=== PATIENT | male | born 1965 | race Caucasian/White ===

== ENCOUNTER → 2024-04-03 09:31 | Outpatient (REF) | payer BC, SELFPAY | LOC: RAD 09:31 | PROVIDERS: ATTENDING PHYSICIAN General Practice; FAMILY PHYSICIAN Family Medicine | DX: D17.23 Benign lipomatous neoplasm of skin and subcutaneous tissue of right leg (principal) | CPT/HCPCS: 76882 ==

== ENCOUNTER 2024-06-11 17:48 | Emergency (ER) | payer BC, SELFPAY ==
[2024-06-11 18:35] VITALS: BP 117/82
[2024-06-11 19:05] LABS: % Basophils 0.4 % (0-2); % Eosinophils 1.5 % (0-6); % Immature Granulocytes 0.1 % (0-0.5); % Lymphocytes 37.9 % (20.5-51.1); % Monocytes 7.5 % (1.7-9.3); % Neutrophils 52.6 % (42.2-75.2); Absolute Eosinophils 0.1 10^3/uL (0-0.7); Absolute Monocytes 0.6 10^3/uL (0.1-0.6); Absolute Neutrophils 4.2 10^3/uL (1.4-6.5); Hematocrit 45.8 % (39.0-52.0); Mean Corp Hgb Conc. 34.9 g/dL (33.0-37.0); Mean Corpuscular Hgb 31.1 pg (27.0-31.0); Mean Corpuscular Volume 88.9 fL (80.0-94.0); Mean Platelet Volume 9.1 fL (7.4-10.4); Nucleated Red Blood Cells % 0 % (-); Platelet Count 224 10^3/uL (130-400); Red Blood Cell Count 5.15 10^6/uL (4.70-6.10); Red Cell Dist. Width 13.5 % (11.5-14.5)
[2024-06-11 19:22] LABS: ALT (SGPT) 39 U/L (0-50); AST (SGOT) 38 U/L (17-59); Albumin 4.1 g/dl (3.5-5.0); Alkaline Phosphatase 59 U/L (38-126); Blood Urea Nitrogen 20 mg/dl (9-20); Calcium 10.5 mg/dl (8.4-10.2); Carbon Dioxide 27 mmol/L (22-30); Chloride 104 mmol/L (98-107); Glucose 108 mg/dl (70-99); Potassium 4.1 mmol/L (3.5-5.1); Sodium 136 mmol/L (135-145); Total Bilirubin 1.2 mg/dl (0.2-1.3); Total Protein 6.8 g/dl (6.3-8.2); eGFR > 60.00
--- NOTE | 2024-06-11 20:41 | ED.GENMED ---
History of Present Illness
General
Chief Complaint: Breathing Problem
Source: patient
Exam Limitations: none
Time Seen by Provider: 06/11/24 20:32
Nursing documentation reviewed up to this point in time: agreed with
History of Present Illness
History of Present Illness:
58-year-old male with a past medical history of hypertension, diabetes, hypothyroidism who presents to the emergency room for evaluation of shortness of breath. Patient reports onset of symptoms about 4-5 weeks ago and they have been constant since
that time. He says that they initially started after he had rotator cuff surgery on his left shoulder and he initially attributed to deconditioning in the postop period however his symptoms have been persisted and are limiting him during
exercise�today tried biking for the first time since surgery and could not tolerate due to shortness of breath and so he came to the emergency room to be assessed. He denies any chest pain. Denies any coughing. Denies any swelling or pain in the
legs. He denies any other complaints. Denies any known cardiac history. Denies history of DVT/PE.
Past History
Past History
ED Past Medical History: Hypercholesterolemia and NIDDM ('Borderline')
ED Past Surgical History: None
Social History
Tobacco: Non-smoker
Review of Systems
Review of Systems
All Other Systems: ROS reviewed and negative except as documented in HPI and ROS
Constitutional: Reports fatigue; Denies fever or chills
Respiratory: Reports trouble breathing; Denies cough
Cardiac: Denies chest pain or palpitations
ABD/GI: Denies abdominal pain
Musculoskeletal: Denies edema, neck pain or back pain
Neurological: Denies dizzy or headache
Phy Exam
Physical Exam
Physical Exam:
General: Awake, alert, oriented x3; no acute distress
Head: Normocephalic, atraumatic
Eyes: Conjunctiva normal
Throat: Airway intact, handling secretions
Neck: Trachea midline, supple without meningismus
Lungs: Clear to auscultation bilaterally, no wheezing, rales, rhonchi
Heart: Regular rate and rhythm, no murmurs, gallops, or rubs
Neuro: No gross deficits, ambulatory
Extremities: No edema in extremities, equal pulses in all extremities
Scores
Heart Failure Risk
Heart Failure Risk Score: Not Applicable
Heart Score for Chest Pain Patients
STEMI patient?: Not applicable
PE Wells Score
Symptoms of DVT: No
No alternative diagnosis better explains the illness: No
Tachycardia with pulse > 100: No
Immobilization (>=3 days) or surgery within previous 4 weeks: Yes
Prior history of DVT or pulmonary embolism: No
Presence of hemoptysis: No
Presence of malignancy: No
Pulmonary Embolism Risk Score: 1.5
Probability of PE: Pt is low risk
Withdrawal Assessment of Alcohol
Withdrawal Assessment Completed?: Not applicable
Course
Orders/Labs/Results
Orders:
Orders
06/11/24 18:44
EKG [Electrocardiogram (*1)] Urgent
Reason for Study: Shortness of Breath
EKG- Treatment ONCE
06/11/24 18:58
CMP [Comprehensive Metabolic Panel] Urgent
Complete Blood Count/With Diff Urgent
06/11/24 20:33
CT Chest Pe Study Urgent
Comment:
Reason For Exam: CP, SOB s/p surgery
Abnormal Lab Results
06/11/24
18:58
MCH 31.1 H pg
(27.0-31.0)
Glucose 108 H mg/dl
(70-99)
Calcium 10.5 H mg/dl
(8.4-10.2)
06/11/24 18:58
06/11/24 18:58
Vital Signs
Initial and Last Documented VS:
Initial Vital Signs
Temp Pulse Resp BP Pulse Ox
36.9 C 89 18 117/82 96
06/11/24 18:35 06/11/24 18:35 06/11/24 18:35 06/11/24 18:35 06/11/24 18:35
Last Documented Vital Signs
Temp Pulse Resp BP Pulse Ox
36.9 C 60 19 116/83 94
06/11/24 18:35 06/11/24 22:00 06/11/24 22:00 06/11/24 22:00 06/11/24 22:00
MDM/Problems Addressed
Differential Diagnosis Includes:
PE, deconditioning, anemia, pneumonia, CHF, dysrhythmia
MDM/Problems Addressed:
58-year-old male presents for evaluation of shortness of breath and fatigue for the past 4 to 5 weeks�symptoms started shortly after left shoulder surgery for rotator cuff tear. Vital signs normal. Physical exam as above. Patient had labs in
triage including a CBC and a CMP which were unremarkable. Will send for a CTA to rule out PE. Monitor on telemetry reassess after the above.
CTA negative for PE or any other acute pathology. Vitals have been stable throughout duration of his ED stay. Stable for discharge, follow-up with PCP for further evaluation of his symptoms; not unreasonable to have him see a business machine mechanic as
well�at this point he has no clear emergent pathology, nothing to suggest acute CHF, no structural abnormalities on CT. Spoke with patient he is comfortable with this plan. Spoke about return precautions all questions answered.
*Radiology
Radiology exam reviewed: radiology read reviewed
*Pulse Oximetry
Patient hypoxic: no
*EKG
Interpreted by ED Provider?: Yes
Heart Rate: 77
Rate: normal
Rhythm: sinus
[place]: normal axis
Interval: normal interval
QRS Pattern: normal QRS
Ischemia: no ischemia
*Critical Care Note
Total Time (30-74mins, 75-104mins- exclusive of procedures): Not Applicable
Data Reviewed
Source: patient
ED Attending Note
-
Portions of this chart may have been created with voice recognition software.� Occasional wrong word or��sound alike� substitutions may have occurred due to the inherent limitations of voice recognition software.
Discharge Plan
Departure
Patient Disposition: Home (Routine Discharge)
Date of Disposition: 06/11/24
Time of Disposition: 23:12
Patient with high blood pressure during this ER visit?: No
Discharge Problem:
Dyspnea
Instructions: Shortness of Breath (Dyspnea) (DC)
Referrals:
Bro Chen DO [Family Provider] - Follow up in 2-3 days
Ham Garland MD [Active] - Call in 1-3 days for appt
Activity Restrictions/Additional Instructions:
Thank you for visiting the Emergency Department at [facility].
1. Please schedule a follow up appointment as directed. Call first thing tomorrow morning to make an appointment.
2. If indicated, please take your medications as instructed and indicated on discharge paperwork.
3. If any of your symptoms do not improve, or persist, or become more severe within 6-12 hours, please return to the emergency department for further care.
4. Please return to the emergency department if you develop a headache, neck pain/stiffness, fever greater than 100.4F, chest pain, shortness of breath, persistent nausea, vomiting, slurred speech, difficulty walking, numbness/tingling, weakness,
signs of infection or any other symptoms that are worrisome to you.
Please call [phone] if you have any questions.
Interventions
Interventions:
*Risk Screen - Suicide Last Done: 06/11/24 18:35
*General Assessment Last Done: 06/11/24 20:51
*Neglect/Abuse Screening Last Done: 06/11/24 18:35
*ED COVID-19 Vaccine History Last Done: 06/11/24 18:35
ED- Cardiac Assessment Last Done: 06/11/24 20:51
ED- Pulmonary Assessment Last Done: 06/11/24 20:51
Discharge Date and Time
Print Language: [place]
[2024-06-11 20:44] VITALS: BP 125/88
[2024-06-11 20:51] VITALS: BMI 19.0
[2024-06-11 21:00] VITALS: BP 114/83
[2024-06-11 22:00] VITALS: BP 116/83
== END 2024-06-11 23:26 | disposition home or self-care (01) ==
LOC: EMR 17:48
PROVIDERS: Emergency Medicine; EMERGENCY PHYSICIAN Emergency Medicine; FAMILY PHYSICIAN Family Medicine
DX: R06.00 Dyspnea, unspecified (principal); I10 Essential (primary) hypertension; E11.9 Type 2 diabetes mellitus without complications; E03.9 Hypothyroidism, unspecified; E78.00 Pure hypercholesterolemia, unspecified; R06.02 Shortness of breath; R53.83 Other fatigue
CPT/HCPCS: 99284; 71275; 80053; 85025; 93005; Q9967

== ENCOUNTER → 2024-07-02 17:49 | Outpatient (REF) | payer BC, SELFPAY | LOC: RAD 17:49 | PROVIDERS: FAMILY PHYSICIAN Family Medicine | DX: R06.02 Shortness of breath (principal) | CPT/HCPCS: 71046 ==

== ENCOUNTER → 2024-12-03 11:18 | Outpatient (REF) | payer BC, SELFPAY | LOC: RAD 11:18 | PROVIDERS: ATTENDING PHYSICIAN Family Medicine | DX: E03.9 Hypothyroidism, unspecified (principal) | CPT/HCPCS: 77080 ==

== ENCOUNTER → 2025-07-30 12:02 | Outpatient (REF) | payer BC, SELFPAY | LOC: RAD 12:02 | PROVIDERS: ATTENDING PHYSICIAN Family Medicine | DX: R05.9 Cough, unspecified (principal) | CPT/HCPCS: 71046 ==

== ENCOUNTER 2025-09-27 06:35 | Day surgery (SDC) | payer BC, SELFPAY ==
[2025-09-27 08:15] LABS: Glucose - Point of Care 101 mg/dl (70-99)
== END 2025-09-27 09:59 | disposition home or self-care (01) ==
LOC: GI 06:35
PROVIDERS: ATTENDING PHYSICIAN Internal Medicine; FAMILY PHYSICIAN Family Medicine
DX: Z12.11 Encounter for screening for malignant neoplasm of colon (principal); D12.2 Benign neoplasm of ascending colon; K57.30 Diverticulosis of large intestine without perforation or abscess without bleeding; K64.9 Unspecified hemorrhoids; Z86.0101 Personal history of adenomatous and serrated colon polyps; K63.89 Other specified diseases of intestine; K29.50 Unspecified chronic gastritis without bleeding; K21.00 Gastro-esophageal reflux disease with esophagitis, without bleeding; K44.9 Diaphragmatic hernia without obstruction or gangrene
CPT/HCPCS: 45385; 45380; 43239; 82962; 88305; 88342